=== PATIENT | male | born 1960 ===

== ENCOUNTER 2018-04-03 15:11 | Emergency (ER) | payer OTHER ==
--- NOTE | 2018-04-03 17:21 | RAD ---
Date of service: 04/03/2018 PROCEDURE: Radiographs of the Lumbar Spine. HISTORY: Pain COMPARISON: No prior. FINDINGS: BONES: Normal alignment. No listhesis. No fracture. DISC SPACES: Mild disc space narrowing along the posterior disc margin at the L5-S1 and to a lesser degree L 4 L5 levels. Small marginal anterior osteophytes also seen along the L4-L5 and L3-L4 levels. OTHER FINDINGS: Metallic clips right upper quadrant of the abdomen consistent with prior cholecystectomy IMPRESSION: No acute fractures. Minor degenerative spondylosis most notably affecting the L4-L5 level. The the
--- NOTE | 2018-04-03 17:22 | RAD ---
Date of service: 04/03/2018 PROCEDURE: Radiographs of the Left Shoulder HISTORY: pain COMPARISON: No prior. FINDINGS: BONES: Normal. No fracture. JOINTS: Normal. Glenohumeral and acromioclavicular joints preserved. No osteoarthritis. SOFT TISSUES: Small calcification within the soft tissues adjacent to the greater tuberosity possibly representing calcific tendinitis. OTHER FINDINGS: None. IMPRESSION: No evidence of acute displaced fracture nor dislocation Findings suggest calcific tendinitis.
--- NOTE | 2018-04-03 17:26 | RAD ---
Date of service: 04/03/2018 PROCEDURE: Right Knee Radiographs. HISTORY: pain COMPARISON: None. FINDINGS: BONES: No evidence of acute displaced fracture nor dislocation JOINTS: Minor posterior patellar osteophyte formation. There is also a small enthesophyte seen arising from the tibial tubercle with what may also represent minimal early anterior patella enthesophyte formation. Small osteophyte seen arising from the lateral tibial plateau however joint spaces are relatively preserved JOINT EFFUSION: Evaluation for joint effusion is somewhat limited due to the lack of a flexion view OTHER FINDINGS: None. IMPRESSION: No acute fracture nor dislocation. Mild degenerative osteoarthritis as above
--- NOTE | 2018-04-03 17:35 | RAD ---
Date of service: 04/03/2018 PROCEDURE: Cervical Spine Radiographs. Note that the odontoid is obscured by overlying incisor teeth and occiput in the open-mouth projection. A additionally, the C7 segment is incompletely visualized. Nonvisualization of the C7-T1 disc space and T1 segment HISTORY: Pain. COMPARISON: None. FINDINGS: BONES: Note that the dens is and C7 and T1 segments incompletely visualized as detailed above. No definitive radiographic evidence of acute compression fractures no retropulsed fragments. Vertebral bodies exhibit normal stature. Slight straightening of the normal cervical lordosis however vertebral bodies otherwise exhibit normal alignment. Facets normally aligned DISC SPACES: Normal. SOFT TISSUES: Normal. No prevertebral soft tissue swelling. OTHER FINDINGS: None. IMPRESSION: Degenerative degenerative spondylosis most notably affecting C5-C6, C6-C7 and to a lesser degree C4-C5 levels. . Changes include varying degrees of disc space narrowing with endplate eburnation as well as anterior and smaller posterior osteophyte formation. Uncovertebral facet arthropathy present as well.
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
[2018-04-03 18:23] VITALS: BP 113/60; PULSE 51; RESP 17; TEMP 98.4
[2018-04-03 19:53] VITALS: O2SAT 99
== END 2018-04-03 18:22 | disposition home or self-care (01) ==
LOC: H.ER 15:11
DX: S16.1XXA Strain of muscle, fascia and tendon at neck level, initial encounter (principal); S39.012A Strain of muscle, fascia and tendon of lower back, initial encounter; V43.62XA Car passenger injured in collision with other type car in traffic accident, initial encounter; Y92.410 Unspecified street and highway as the place of occurrence of the external cause; Z95.5 Presence of coronary angioplasty implant and graft